=== PATIENT | female | born 1960 | race Caucasian/White ===

== ENCOUNTER → 2017-03-17 | Day surgery (SDC) | payer OTHER ==
[~2017-03-17] VITALS: Ht 170.2 cm; Wt 72.6 kg
[~2017-03-17] MED LIST: ASPI1TAB PO; ATEN25TA PO; LISI-538 PO; NEXI40CA PO; NORT25CA2 PO; PANT40TA2 PO; ROPI0.25 PO; SUCR1TAB56 PO
== END ==
LOC: M OPP 11:09
PROVIDERS: ATTEND Internal Medicine Gastroenterology
DX: R12 Heartburn (principal); Z53.9 Procedure and treatment not carried out, unspecified reason

== ENCOUNTER 2018-03-23 07:07 | Day surgery (SDC) | payer OTHER ==
[2018-03-23] MEDS ORDERED: PROPOFOL 200 MG/20 ML VIAL As Ordered ×2 (07:15)
[2018-03-23] MEDS ORDERED: LIDOCAINE 2% INJ 100 MG/5 ML SDV (FOR ANES.) As Ordered (07:15)
[2018-03-23] MEDS: NS 1,000 ML IV (07:30)
== END 2018-03-23 09:50 | disposition home or self-care (01) ==
LOC: M OPP 07:07
DX: Z12.11 Encounter for screening for malignant neoplasm of colon (principal); K64.0 First degree hemorrhoids; R12 Heartburn; K22.70 Barrett's esophagus without dysplasia; K22.8 Other specified diseases of esophagus; K44.9 Diaphragmatic hernia without obstruction or gangrene
CPT/HCPCS: 45378

== ENCOUNTER → 2021-10-05 | Outpatient (CLI) | payer OTHER ==
[~2021-10-05] MED LIST changes: -ASPI1TAB PO; +ASPI81TA26 PO; +FOLI1TAB11 PO; -LISI-538 PO; +LISI20TA33 PO; +METH2.5T48 PO; +OMEP-358 PO; -PANT40TA2 PO; +PANT40TA29 PO; -ROPI0.25 PO; +ROPI0.253 PO
== END ==
LOC: M LABSMTC 09:19
PROVIDERS: ATTEND Anesthesiology
DX: Z01.812 Encounter for preprocedural laboratory examination (principal); Z20.822 Contact with and (suspected) exposure to COVID-19

== ENCOUNTER 2021-10-08 08:18 | Day surgery (SDC) | payer OTHER ==
[~2021-10-08] VITALS: Ht 170.2 cm; Wt 75.2 kg
[~2021-10-08 08:18] MED LIST changes: +LIDOCAINE 2% 100MG/5ML SDV (FOR ANES.) As Ordered ONE; +NS 1,000 ML IV ONE; +fentaNYL 100 MCG/2 ML INJECTION As Ordered ONE; +propofoL 500 MG/50 ML VIAL As Ordered ONE
[2021-10-08] MEDS ORDERED: METOPROLOL 5 MG/5 ML VIAL As Ordered ONE (09:29)
[2021-10-08 10:10] VITALS: BP 136/79
== END 2021-10-08 10:20 | disposition home or self-care (01) ==
LOC: M OPP 08:18
PROVIDERS: ATTEND Internal Medicine Gastroenterology
DX: R19.4 Change in bowel habit (principal); K64.0 First degree hemorrhoids; K22.70 Barrett's esophagus without dysplasia; K22.89 Other specified disease of esophagus; K44.9 Diaphragmatic hernia without obstruction or gangrene; R12 Heartburn; Z79.899 Other long term (current) drug therapy; Z88.5 Allergy status to narcotic agent; Z86.73 Personal history of transient ischemic attack (TIA), and cerebral infarction without residual deficits
CPT/HCPCS: 43239; 45378; 88305; J3010